=== PATIENT | female | born 1975 | race Caucasian/White ===

== ENCOUNTER 2016-09-08 10:41 | Emergency (ER) | payer OTHER ==
[~2016-09-08] VITALS: Ht 165.1 cm; Wt 49.9 kg
[2016-09-08 10:47] VITALS: BP 110/75
--- NOTE | 2016-09-08 11:35 | ED NEURO DEFICIT/STROKE ---
History of Present Illness General Chief Complaint: General Adult Stated Complaint: LT/RT LEG BURNING SENSATION,RT ARM NUMBNESS Source: patient, old records Exam Limitations: no limitations Vital Signs & Intake/Output Vital Signs & Intake/Output Vital Signs Date Time Temp Pulse Resp B/P Pulse O2 O2 Flow FiO2 Ox Delivery Rate 09/08 1047 97.4 71 16 110/75 97 Room Air Allergies Coded Allergies: No Known Allergies (09/08/16) Reconcile Medications Citalopram Hydrobromide (Citalopram HBr) 40 MG TABLET 1 TAB PO DAILY MENTAL HEALTH (Reported) Gabapentin 300 MG CAPSULE 1 CAP PO TID NERVE (Reported) Naproxen (Naprosyn) 500 MG TABLET 1 TAB PO BID INFLAMMATION Ondansetron HCl 4 MG TABLET 1 TAB PO Q6P PRN NAUSEA (Reported) Triage Note: PT STATES SHE HAS NUMB BURNING SENSATION FROM HER RIGHT LOWER BACK RADIATING DOWN HER LEG INTO HER FOOT. PT STATES THIS AM THE SAME THING IS HAPPENING TO HER LEFT LEG AND RIGHT ARM. PT REPORTS BURNING TINGLING FEELING. PT REPROTS S/S STARTED YESTERDAY AFTERNOON. Triage Nurses Notes Reviewed? yes : No Patient currently breastfeeds: No HPI: This is a 40-year-old female here with multiple medical complaints. She states that yesterday she started having right posterior lateral leg numbness and tingling sensation that extended into the lower leg lateral calf region and foot. She denies any trauma or injury. She has mild chronic intermittent back pain but has not seen any provider for this and does not have any previous medical evaluation has no previous injury for her intermittent back pain. Pain currently is mild to moderate in the right side of the lower back. Patient also complains of mild left lateral lower leg tingling sensation and hypersensitivity to both lower legs with light sensation. She complains of right arm tingling and numbness feeling throughout the entire right arm. These arm symptoms started today as well. Symptoms are mild. She states that she is walking differently because of the right lower leg symptoms. She has not tried anything for the pain. Patient also notes that she has had a 50 pound weight loss over the last several months which was unintentional and having chronic diarrhea. She is seen by her primary care doctor for this as well as fibre technologist and she is scheduled to have a colonoscopy in the upcoming weeks. She had blood tests from her fibre technologist that were done here which I reviewed on August 24 which show a low white blood cell count and low platelets. Interestingly enough, the patient states that she had "flu" for about 3 or 4 days immediately prior to that blood test. She did not have medical care or treatment at that time and she assumed it was the flu because of fever body aches generalized malaise cough and congestion. She denies any recent tick bite or rashes. She denies any joint pain or swelling. (ANGELES WIGGINS) Past History Travel History Traveled to [place] past 21 day No Medical History Any Pertinent Medical History? 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 No (ANGELES WIGGINS) Review of Systems Review of Systems Constitutional: Reports: see HPI. EENTM: Reports: no symptoms. Respiratory: Reports: no symptoms. Cardiovascular: Reports: no symptoms. GI: Reports: see HPI. Genitourinary: Reports: no symptoms. Musculoskeletal: Reports: see HPI. Skin: Reports: no symptoms. Neurological/Psychological: Reports: see HPI. Hematologic/Endocrine: Reports: no symptoms. Immunologic/Allergic: Reports: no symptoms. All Other Systems: Reviewed and Negative (ANGELES WIGGINS) Physical Exam Physical Exam General Appearance: well developed/nourished Cranial Nerves: normal hearing, normal speech, PERRL Comments: Well-developed well-nourished person in no acute distress HEENT: Normal EENT exam, extraocular motion intact, no nystagmus. Pupils equally round and reactive to light. Nose is atraumatic. External auditory canal and Tympanic membranes clear. Pharynx normal. No swelling or edema. Neck: Supple, no lymphadenopathy, normal range of motion without pain or tenderness Back: Mild tenderness in the right lower back, L5 region., no CVA tenderness. Full range of motion, negative straight leg raise bilateral, negative well straight leg raise. Cardiovascular: Regular rate and rhythms no murmurs, normal JVP Respiratory: Chest nontender. No respiratory distress. Breath sounds clear to auscultation bilaterally Abdomen: Soft, nontender nondistended, no appreciable organomegaly. Normal bowel sounds. No ascites Extremity: No edema, no calf tenderness to palpation, normal and equal pulses. Neuro: Alert oriented x3, motor normal bilateral upper and lower extremities, no weakness. Sensation to the left arm is"tingling" as well as to the right lower leg lateral aspect. There is no calf pain or swelling or edema. She has 4+ out of 5 strength in dorsiflexion on the right side, 5 out of 5 otherwise throughout bilateral lower and upper extremities., cranial nerves II through XII grossly intact. Skin: No appreciable rash on exposed skin, skin is warm and dry. Psych: Mood and affect is normal, memory and judgment is normal. Core Measures CVA/TIA Diagnosis: No Severe Sepsis Present: No Septic Shock Present: No (JULIA WEBER,ANGELES) Progress Differential Diagnosis: acute glaucoma, Shay's Palsy, drug intoxication, electrolyte imbalance, encephalitis, hypoglycemia, intracranial Hem., intracranial mass/tumor, meningitis, migraine LU, seizure disorder, stroke, subarachnoid Hem., vertebrobasilar insuff., Anaplasma, Lyme disease, transverse myelitis, herniated disc, myasthenia gravis, guillain barre Plan of Care: Orders Procedure Date/time Status Add-on Test (ER Only) 09/08 1247 Active LYME TITRE 09/08 1126 Active COMPREHENSIVE METABOLIC PANEL 09/08 1126 Complete CBC WITHOUT DIFFERENTIAL 09/08 1126 Complete ANAPLASMA PHAGOCYTOPHILUM DNA 09/08 1126 Active Laboratory Tests 09/08/16 1205: Anion Gap 7, Estimated GFR > 60, BUN/Creatinine Ratio 10.0, Glucose 82, Calcium 9.3, Total Bilirubin 0.6, AST 16, ALT 30, Alkaline Phosphatase 39, Total Protein 6.4, Albumin 3.8, Globulin 2.6, Albumin/Globulin Ratio 1.5, CBC w Diff MAN DIFF ORDERED, RBC 4.38, MCV 90.7, MCH 31.0, RDW 13.6, MPV 8.2, Gran % 32.0 L, Lymphocytes % 57.8 H, Monocytes % 7.2, Eosinophils % 2.1, Basophils % 0.9, Absolute Granulocytes 1.2 L, Absolute Lymphocytes 2.3, Absolute Monocytes 0.3, Absolute Eosinophils 0.1, Absolute Basophils 0, Platelet Estimate VERIFIED BY SMEAR, Normocytic RBCs VERIFIED, Normochromic RBCs VERIFIED, PUBS MCHC 34.2, Lyme Disease Antibody Pending 09/08/16 1127: A.phagocytophil DNA PCR Pending Initial ED EKG: none Comments: Lumbar spine x-rays unremarkable. Laboratory values largely unremarkable except for mild continued leukopenia although it is improved from her last blood tests and her platelet counts have normalized. I am suspicious of Anaplasma and a concurrent possible Lyme infection. Due to her neurologic symptoms and recent febrile illness. These blood tests were ordered, I discussed with her that he now is back for the next few days. She has a follow-up appointment with her primary care doctor on Monday, results should be back by then and she should follow-up with her doctor then for the results of these tests. We will also call her with the positive test result. I do not feel as though patient requires any further imaging or testing here in the emergency department. I considered such illnesses as Guillain-Virgen or other neurologic conditions but she has only symptoms of paresthesia without any significant functional deficit and no other signs of significant weakness or functional decrease. She will placed on anti-inflammatories, she was instructed to return to the ER if she is significantly worsening throughout the weekend for reevaluation. (ANGELES WIGGINS) Departure Departure Disposition: HOME OR SELF CARE Condition: Stable Clinical Impression Primary Impression: Paresthesia Referrals: MARKIE VARMA DO (PCP/Family) Additional Instructions: FOLLOW-UP WITH YOUR DOCTOR ON monday SCHEDULED. Take the anti-inflammatory medication as directed. Return to the ER if you are feeling worsening numbness and weakness in the extremities or having trouble walking. There are several tests that are still pending, we will call you with a positive test results or your primary care doctor can review these next week Departure Forms: Customer Survey General Discharge Information Prescriptions: Current Visit Scripts Naproxen (Naprosyn) 1 TAB PO BID #30 TAB (ANGELES WIGGINS) PA/BRIQUETTE MAKER Co-Sign Statement Statement: ED Attending supervision documentation- [] I saw and evaluated the patient. I have also reviewed all the pertinent lab results and diagnostic results. I agree with the findings and the plan of care as documented in the PA's/BRIQUETTE MAKER's documentation. [X] I have reviewed the ED Record and agree with the PA's/BRIQUETTE MAKER's documentation. [] Additions or exceptions (if any) to the PAs/BRIQUETTE MAKER's note and plan are summarized below: [] (CHINO SURESH,JU Rg)
[2016-09-08] MEDS ORDERED: GABAPENTIN300 M2 PO (11:57)
[2016-09-08] MEDS ORDERED: ONDANSETRON HCL4 MG PO (11:58)
[2016-09-08] MEDS ORDERED: CITALOPRAM HBR40 MG PO (11:58)
--- NOTE | 2016-09-08 12:29 | RADIOLOGY REPORT ---
EXAMINATION: XR LUMBOSACRAL SPINE CLINICAL INFORMATION: Back pain and right-sided radiculopathy. COMPARISON: None TECHNIQUE: AP and lateral views of the lumbosacral spine were obtained. FINDINGS: The vertebral bodies and posterior elements are unremarkable. The disc spaces are preserved and the vertebral alignment is normal. The paraspinal soft tissues are normal. The sacrum and sacroiliac joints are normal. IMPRESSION: No significant radiographic findings in the lumbosacral spine. No evidence of fracture, malalignment, degenerative disc disease or sacroiliitis.
[2016-09-08 12:34] LABS: ABSOLUTE BASOPHIL COUNT 0 /CUMM (0.0-0.2); ABSOLUTE EOSINOPHIL COUNT 0.1 /CUMM (0.0-0.7); ABSOLUTE GRANULOCYTE CT 1.2 /CUMM (1.4-6.5); ABSOLUTE LYMPH COUNT 2.3 /CUMM (1.2-3.4); ABSOLUTE MONOCYTE COUNT 0.3 /CUMM (0.10-0.60); BASOPHIL % 0.9 % (0.0-2.0); EOSINOPHIL % 2.1 % (0-5); HEMATOCRIT 39.7 % (37-47); MEAN CORPUSCULAR HGB CONC 34.2 G/DL (33.0-37.0); MEAN CORPUSCULAR VOLUME 90.7 FL (81.0-99.0); MEAN PLATELET VOLUME 8.2 FL (7.4-10.4); PLATELET COUNT 179 /CUMM (130-400); RBC DISTRIBUTION WIDTH 13.6 % (11.5-14.5); RED BLOOD CELL CT 4.38 /CUMM (4.20-5.40); WHITE BLOOD CELL COUNT 3.9 /CUMM (4.8-10.8)
[2016-09-08] MEDS ORDERED: NAPROSYN500 M1 PO (12:57)
[2016-10-06] MEDS ORDERED: PROAIR HFA8.5 GM INH (16:01)
== END 2016-09-08 13:03 ==
LOC: ERH 10:41
PROVIDERS: Physician Assistant Surgical
DX: R20.2 Paresthesia of skin (principal)
CPT/HCPCS: 86618; 87798; 72100

== ENCOUNTER → 2016-10-12 | Day surgery (SDC) | payer OTHER ==
--- NOTE | 2016-10-11 18:40 | History & Physical Pre-Op ---
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 Patient has experienced a 40 pound weight loss over the last several months and the source of this weight loss is undiagnosed. Gastrointestinal workup has not shown any source for her weight loss although she has chronic diarrhea. She was then diagnosed with ovarian cysts bilaterally in July 2016 and her CA-125 is in the normal range. Recent repeat ultrasound reveals that the ovarian cysts have not changed in size however they need to be removed to exclude ovarian carcinoma. 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 EENTM: Reports: no symptoms. Cardiovascular: Reports: no symptoms. Respiratory: Reports: no symptoms. GI: Reports: changes in stool. Genitourinary: Reports: no symptoms. Musculoskeletal: Reports: no symptoms. Skin: Reports: no symptoms. Neurological/Psychological: Reports: no symptoms. Hematologic/Endocrine: Reports: no symptoms. Immunologic/Allergic: Reports: no symptoms. All Other Systems: Reviewed and Negative Exam & Diagnostic Data Last 24 Hrs of Vital Signs/I&O Vital signs stable Physical Exam: HEENT: Normocephalic atraumatic Chest: Clear to auscultation bilaterally Cardiovascular: Normal S1-S2 Abdomen: Soft nontender Pelvic: Deferred to the OR Extremities: No clubbing cyanosis or edema Neurologic: Nonfocal Assessment/Plan Assessment/Plan: Bilateral ovarian cysts Laparoscopic excision of bilateral ovarian cysts As Ranked By This Provider Problem List: 1. Ovarian cyst
[~2016-10-12] VITALS: Ht 165.1 cm; Wt 49.0 kg
[~2016-10-12] MED LIST: CITALOPRAM HBR40 MG PO; GABAPENTIN300 M2 PO; NAPROSYN500 M1 PO; ONDANSETRON HCL4 MG PO; PROAIR HFA8.5 GM INH
--- NOTE | 2016-10-17 17:27 | Operative Report ---
Operative/Inv Procedure Report Surgery Date: 10/12/16 Name of Procedure: Laparoscopic right ovarian cystectomy, left ovarian aspiration and lysis of adhesions Pre-Operative Diagnosis: Bilateral ovarian cysts Post-Operative Diagnosis: Name, probable endometriosis Estimated Blood Loss: less than 50ml Surgeon/Address Change Clerk: MARCO OLGUIN MD Anesthesia: general endotracheal tube Operative/Procedure Note Note: The patient was brought to the operating room and placed on the OR table in the dorsal supine position. She was given adequate general anesthesia and successfully intubated. She was repositioned into modified dorsal lithotomy. She was prepped and draped in usual sterile fashion. A Alba catheter was inserted and drained the bladder of clear yellow urine. An infra umbilical skin incision was made with the scalpel and a Veress needle was placed into the abdominal cavity and the abdomen was insufflated with CO2 gas under high flow and low pressure until an adequate pneumoperitoneum had been achieved. At this point the Veress needle was removed and replaced with a 5 mm disposable trocar. Through the trocar sleeve the camera was placed and good anatomic location and hemostasis was noted. The patient was placed into Trendelenburg position. There were dense adhesions of the old of the intestine to the anterior wall of the bladder. Pictures were taken. The omentum was also adherent to the left upper abdominal wall. A suprapubic stab incision was made with the scalpel and a 5 mm disposable trocar was inserted under direct visualization. A left lower quadrant incision was made with the scalpel and a 5 mm disposable trocar was inserted under direct visualization. Through both of the lower ports the laparoscopic instruments using graspers and electrocautery were used to do lysis of adhesions on the lower pelvis. The intestines were dissected off of the anterior wall and freed. Attention was then paid to the right ovary which appeared to be enlarged with a benign-appearing cyst. Pelvic washings were obtained at this time. Then using an aspirator the cyst was punctured and some small amount of fluid was removed and sent to pathology. The cyst was then opened using bipolar cautery. Straw colored material was removed. There was some old blood and clot as well. The cyst wall was taken with the ligature instrument and removed at the end of the case. Attention was then directed at the left ovary which had a lot of small cyst. This was punctured as well and aspirated. A 10 mm disposable trocar was inserted through the suprapubic port and an Endobag was placed through here through here the right ovarian cyst partial fallopian tube and the left ovarian cyst wall were placed and the bag. The bag was then removed intact. The pelvis was copiously irrigated. Cystic suture sites were hemostatic. Expiration of the upper abdomen revealed normal liver and gallbladder omentum adhesed to the anterior wall. The CO2 gas was allowed to escape the abdomen and the ports were removed. The fascia was closed using 0 Polysorb in a [id number] fashion. Skin was closed with the 3-0 Polysorb in an interrupted fashion. Bandages were placed over the wounds patient was awakened and sent to recovery in good condition. All needle, sponge , and is recalcitrant correct at the end of procedure 2.
== END ==
LOC: STS 01:55
DX: N83.291 Other ovarian cyst, right side (principal); N83.292 Other ovarian cyst, left side; J45.909 Unspecified asthma, uncomplicated
CPT/HCPCS: 88305; J0131; J2250; J2405